=== PATIENT | male | born 2005 | race Hispanic/Latino ===

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

== ENCOUNTER → 2023-03-22 | Emergency (ER) | payer OTHER, SELFPAY ==
[~2023-03-22] MED LIST: AZITHROMYCIN 1 GM PACKET ONE; CEFTRIAXONE 1000 MG/VIAL ONE; NA CHLORIDE 0.9% 1,000 ML ONE; ONDANSETRON 4 MG/2 ML VIAL ONE
--- OUTSIDE RECORDS SUMMARY | 2023-03-22 08:56 | XMS REPORT | Continuity of Care Document ---
Author Name Unknown Address [address] [facility] [address] [place] [address] [facility] Address [address] [facility] [address] [place] [address] Care Team Providers Care Hotel Assistant Manager Name Role Phone PCP, PATIENT DOES NOT HAVE A Primary Care Physic yusuf Unavailable Abby Vargas PA-C Attending Clinician [phone] Saige Bergman Attending Clinician [phone] ABBY VARGAS Attending Clinician Unavailable Doctor Unassigned, [place] Attending Clinician U david Fairchild MD, Eliza Attending Clinician [phone] Diane Lawton Attending Clinician [phone] ELIZA FAIRCHILD Attending Clinician Unavailable Nurse, [facility] Attending Clinician Un available Maday Shafer Attending Clinician [phone] DixieFatou Mcallister Attending Clinician + [phone] MADAY ANDINO Attending Clinician Unavailable Provider, [facility] Attending Clinician Unavailable Only, Ang Db Test Attending Clinician UnavailDeepa Bejarano Attending Clinician [phone] DEEPA ACOSTA Attending Clinician Unavailmelvina Stoner RN, Sharmin Shelton Attending Clinician Unavailab le Payers Payer Name Policy Type Policy Number Effective Date Expirati on Date Source Problems Condition Name Condition Details Condition Category Status Onset Date Resolution Date Last Treatment Date Treating Clinician Comments Source No known active problems No known active problems Disease [facility] Allergies, Adverse Reactions, Alerts Allergy Name Allergy Type Status Severity Reaction(s) Onset Date Inactive Date Treating Clinician Comments Source NO KNOWN ALLERGIE S Drug Class Active [facility] Social History Social Habit Start Date Stop Date Quantity Comments Source Exposure to SARS-CoV-2 (event) Not sure [facility] Sex Assigned At 2005 00:00:00 2005 00:00:00 [facility] Smoking Status Start Date Stop Date Source Unknown if ever smoked [facility] Medications Ordered Medication Name Filled Medication Name Start Date Stop Date Current Medication? Ordering Clinician Indication Dosage Frequency Signature (SIG) Comments Components Source ondansetron (ZOFRAN-ODT ) disintegrat ing tablet 8 mg 05-24 02:30: 00 05-24 01:20 :00 No [id number] 8mg [facility] ondansetron (ZOFRAN-ODT ) disintegrat ing tablet 8 mg 05-24 02:30: 00 05-24 01:20 :00 No [id number] 8mg 8 mg, Oral, ONCE, 1 dose, On 05/23/21 at 2130, Routine [facility] ondansetron 4 mg disintegrat ing tablet 05-23 00:00: 00 Yes [id number] 4mg Take 1 tablet by mouth every 8 (eight) hours as needed for Nausea and Vomiting (N/V). [facility] Dextrometho rphan-Guaif enesin 5-100 mg/5 mL Liqd 2020-02 00:00: 00 Yes [id number] 5mL Take 5 mL by mouth every 6 (six) hours as needed for Cough. [facility] azelastine 137 mcg (0.1 %) nasal spray 2020-02 00:00: 00 Yes [id number] 1{spray } Use 1 [place] in each nostril 2 (two) times daily. Use in each nostril as directed [facility] codeine-gua ifenesin 10-100 mg/5 mL oral solution 2020-02 00:00: 00 Yes 5mL Take 5 mL by mouth every 6 (six) hours as needed for Cough. Indication s: cough [facility] Dextrometho rphan-Guaif enesin 5-100 mg/5 mL Liqd 2020-02 00:00: 00 Yes [id number] 5mL Take 5 mL by mouth every 6 (six) hours as needed for Cough. [facility] azelastine 137 mcg (0.1 %) nasal spray 2020-02 00:00: 00 Yes [id number] 1{spray } Use 1 [place] in each nostril 2 (two) times daily. Use in each nostril as directed [facility] codeine-gua ifenesin 10-100 mg/5 mL oral solution 2020-02 00:00: 00 Yes 5mL Take 5 mL by mouth every 6 (six) hours as needed for Cough. Indication s: cough [facility] Dextrometho rphan-Guaif enesin 5-100 mg/5 mL Liqd 2020-02 00:00: 00 Yes [id number] 5mL Take 5 mL by mouth every 6 (six) hours as needed for Cough. [facility] azelastine 137 mcg (0.1 %) nasal spray 2020-02 00:00: 00 Yes [id number] 1{spray } Use 1 [place] in each nostril 2 (two) times daily. Use in each nostril as directed [facility] codeine-gua ifenesin 10-100 mg/5 mL oral solution 2020-02 00:00: 00 Yes 5mL Take 5 mL by mouth every 6 (six) hours as needed for Cough. Indication s: cough [facility] Dextrometho rphan-Guaif enesin 5-100 mg/5 mL Liqd 2020-02 00:00: 00 Yes [id number] 5mL Take 5 mL by mouth every 6 (six) hours as needed for Cough. [facility] azelastine 137 mcg (0.1 %) nasal spray 2020-02 00:00: 00 Yes [id number] 1{spray } Use 1 [place] in each nostril 2 (two) times daily. Use in each nostril as directed [facility] codeine-gua ifenesin 10-100 mg/5 mL oral solution 2020-02 00:00: 00 Yes 5mL Take 5 mL by mouth every 6 (six) hours as needed for Cough. Indication s: cough [facility] No known medications 2020-02 10:42: 52 No [facility] benzonatate (TESSALON PERLES) 100 mg capsule 2020-02 00:00: 00 01-17 05:59 :00 No [id number] 200mg Take 2 capsules by mouth every 8 (eight) hours for 10 days. [facility] cetirizine- psuedoephed rine (ZYRTEC-D) 5-120 mg per tablet 2020-02 00:00: 00 01-17 05:59 :00 No [id number] 1{tbl} Take 1 tablet by mouth 2 (two) times daily for 10 days. [facility] benzonatate (TESSALON PERLES) 100 mg capsule 2020-02 00:00: 00 01-17 05:59 :00 No [id number] 200mg Take 2 capsules by mouth every 8 (eight) hours for 10 days. [facility] cetirizine- psuedoephed rine (ZYRTEC-D) 5-120 mg per tablet 2020-02 00:00: 00 01-17 05:59 :00 No [id number] 1{tbl} Take 1 tablet by mouth 2 (two) times daily for 10 days. [facility] benzonatate (TESSALON PERLES) 100 mg capsule 2020-02 00:00: 00 01-17 05:59 :00 No [id number] 200mg Take 2 capsules by mouth every 8 (eight) hours for 10 days. [facility] cetirizine- psuedoephed rine (ZYRTEC-D) 5-120 mg per tablet 2020-02 00:00: 00 01-17 05:59 :00 No [id number] 1{tbl} Take 1 tablet by mouth 2 (two) times daily for 10 days. [facility] benzonatate (TESSALON PERLES) 100 mg capsule 2020-02 00:00: 00 01-17 05:59 :00 No [id number] 200mg Take 2 capsules by mouth every 8 (eight) hours for 10 days. [facility] cetirizine- psuedoephed rine (ZYRTEC-D) 5-120 mg per tablet 2020-02 00:00: 00 01-17 05:59 :00 No [id number] 1{tbl} Take 1 tablet by mouth 2 (two) times daily for 10 days. [facility] predniSONE 20 mg tablet 2020-02 00:00: 00 01-12 05:59 :00 No [id number] 40mg Take 2 tablets by mouth daily for 5 days. [facility] predniSONE 20 mg tablet 2020-02 00:00: 00 01-12 05:59 :00 No [id number] 40mg Take 2 tablets by mouth daily for 5 days. [facility] predniSONE 20 mg tablet 2020-02 00:00: 00 01-12 05:59 :00 No [id number] 40mg Take 2 tablets by mouth daily for 5 days. [facility] predniSONE 20 mg tablet 2020-02 00:00: 00 01-12 05:59 :00 No [id number] 40mg Take 2 tablets by mouth daily for 5 days. [facility] Vital Signs Vital Name Observation Time Observation Value Comments S chicomarya Systolic blood pressure 2021-05-24 00:50:00 115 mm[Hg] [facility] Diastolic blood pressure 2021-05-24 00:50:00 76 mm[Hg] [place] [facility] Heart rate 2021-05-24 00:50:00 82 /min [facility] 2021-05-24 00:50:00 36.39 Annalisa [facility] Respiratory rate 2021-05-24 00:50:00 14 /min [facility] Body height 2021-05-24 00:50:00 167.6 cm [facility] Body weight 2021-05-24 00:50:00 59.421 kg [facility] BMI 2021-05-24 00:50:00 21.14 kg/m2 [facility] Body mass index (BMI) [Percentile] Per age and sex 2021-05-24 00:50:00 42.94 % [facility] Oxygen saturation in Arterial blood by Pulse oximetry 2021-05-24 00:50:00 100 /min [facility] Body temperature 2021-01-11 17:05:00 37.11 Annalisa [facility] Respiratory rate 2021-01-11 17:05:00 18 /min [facility] Body weight 2021-01-11 17:05:00 69.899 kg [facility] Oxygen saturation in Arterial blood by Pulse oximetry 2021-01-11 17:05:00 95 /min [facility] Systolic blood pressure 2021-01-11 17:05:00 112 mm[Hg] [facility] Diastolic blood pressure 2021-01-11 17:05:00 69 mm[Hg] [facility] Heart rate 2021-01-11 17:05:00 80 /min [facility] Systolic blood pressure 2021-01-06 16:04:00 114 mm[Hg] [facility] Diastolic blood pressure 2021-01-06 16:04:00 78 mm[Hg] [facility] Heart rate 2021-01-06 16:04:00 90 /min [facility] Body temperature 2021-01-06 16:04:00 36.72 Annalisa [facility] Respiratory rate 2021-01-06 16:04:00 18 /min [facility] Body weight 2021-01-06 16:04:00 68.04 kg [facility] Oxygen saturation in Arterial blood by Pulse oximetry 2021-01-06 16:04:00 98 /min [facility] Procedures Procedure Date / Time Performed Performing Clinician Source POCT MOLECULAR FLU 2021-05-24 00:58:00 Saige Campos [facility] NO SHOW OR MISSED APPOINTMENT POLICY ACKNOWLEDGEMENT 2021-05-24 00:44:44 Doctor Unassigned, [place] [facility] XR CHEST 2 VW 2021-01-06 17:04:09 Maday Andino [facility] Encounters Start Date/Time End Date/Time Encounter Type Admission Type Attending [facility] Care Facility Care Department Encounter ID Source 2021-05-23 20:00:00 2021-05-23 20:20:00 Urgent Care Abby Vargas Cathy [facility] 1..840.114 350.1.13.10 4.2.7.2.686 [id number] [facility] 2021-05-23 20:00:00 2021-05-23 20:00:00 Outpatient ABBY NGUYEN [facility] [id number] [facility] 2021-05-23 00:00:00 2021-05-23 00:00:00 Orders Only Doctor Unassigned, [place] [facility] 1..840.114 350.1.13.10 4.2.7.2.686 [id number] [facility] 2021-01-11 10:56:21 2021-01-11 11:16:21 Urgent Care Eliza Fairchild Omayemi [facility] 1..840.114 350.1.13.10 4.2.7.2.686 [id number] [facility] 2021-01-11 11:00:00 2021-01-11 11:00:00 Outpatient ELIZA ISRAEL [facility] [id number] [facility] 2021-01-11 00:00:00 2021-01-11 00:00:00 Telephone Nurse, [facility] 1..840.114 350.1.13.10 4.2.7.2.686 [id number] [facility] 2021-01-06 10:36:44 2021-01-06 23:59:00 Hospital Encounter Maday Andino [facility] [facility] MED[facility] OFF[facility] 1.284.114 350.1.13.10 4.2.7.2.686 [id number] [facility] 2021-01-06 10:00:07 2021-01-06 10:43:37 Urgent Care Maday Andino Kimberly J [facility] 1.84.114 350.1.13.10 4.2.7.2.686 [id number] [facility] 2021-01-06 10:00:00 2021-01-06 10:43:37 Outpatient R MADAY ANDINO [facility] [id number] [facility] 2021-01-06 00:00:00 2021-01-06 00:00:00 Letter (Out) Provider, [facility] 1.84.114 350.1.13.10 4.2.7.2.686 [id number] [facility] 2020-11-14 17:11:25 2020-11-14 17:26:25 Laboratory Only Only, Ang Db Test [facility] 1.84.114 350.1.13.10 4.2.7.2.686 [id number] [facility] 2020-11-14 17:15:00 2020-11-14 17:15:00 Outpatient R DAVE [facility] [id number] [facility] 2020-11-13 13:51:42 2020-11-13 14:06:42 Laboratory Only Only, Ang Db Test Deepa Acosta [facility] Medical Office Building [id number] 350.1.13.10 4.2.7.2.686 [id number] [facility] 2020-11-13 13:45:00 2020-11-13 13:45:00 Outpatient R DEEPA ACOSTA [facility] [id number] [facility] 2020-11-13 00:00:00 2020-11-13 00:00:00 Letter (Out) Doctor Unassigned, [place] [facility] [id number] 350.1.13.10 4.2.7.2.686 [id number] [facility] 2020-10-30 00:00:00 2020-10-30 00:00:00 Letter (Out) Sharmin Stoner [facility] [id number] 350.1.13.10 4.2.7.2.686 [id number] [facility] 2020-10-28 13:00:53 2020-10-28 13:10:53 Laboratory Only Only, Ang Db Test Gurinder [facility] [id number] 350.1.13.10 [id number] [id number] [facility] 2020-10-28 13:00:00 2020-10-28 13:00:00 Outpatient R [facility] [id number] [facility] Results Test Description Test Time Test Comments Results Result Co mments Source [facility]
[2023-03-22 10:06] LABS: Absolute Lymphocytes (CBC) 1.1 K/uL (0.7-4.9); Hematocrit 37.8 % (39.6-49.0); Lymphocytes % 13.8 % (15.3-44.8); MPV 8.4 fL (7.6-11.3); Platelets 278 thou/uL (152-406); RBC Red Blood Cell Count 4.29 M/uL (4.33-5.43)
[2023-03-22 10:12] LABS: Specific Gravity 1.023 (1.005-1.030); Urine Bacteria None Seen /HPF (<20); Urine Bilirubin NEGATIVE (Negative); Urine Blood Trace (Negative); Urine Clarity Extremely Turbid (Clear); Urine Color Yellow (Yellow); Urine Glucose NEGATIVE (Negative); Urine Mucus 1+ /HPF (None Seen); Urine Protein 1+ (Negative); Urine RBC <5 /HPF (None Seen); Urine Urobilinogen 1+ (Normal)
[2023-03-22 10:24] LABS: Albumin 3.6 g/dL (3.4-5.0); Bilirubin Total 0.5 mg/dL (0.2-1.0); Potassium 3.8 mEq/L (3.5-5.1); Protein, Total 8.4 g/dL (6.4-8.2)
--- NOTE | 2023-03-22 11:43 | ER ---
[facility] Name: Sony Stone [facility] Age: 17 yrs Sex: Male : 2005 Arrival Date: 03/22/2023 Time: 08:53 Bed 15 Private MD: Diagnosis: Vomiting;Dysuria;UTI/ Urinary tract infection, site not specified Presentation: 03/22 09:12 Chief complaint: Patient states: N/V, chills/sweats since Monday. No known fevers. ll1 Coronavirus screen: Client denies travel out of the [place] in the last 14 days. At this time, the client does not indicate any symptoms associated with coronavirus-19. Ebola Screen: Patient denies travel to an Ebola-affected area in the 21 days before illness onset. Initial Sepsis Screen: Does the patient meet any 2 criteria? No. Patient's initial sepsis screen is negative. Does the patient have a suspected source of infection? Yes: Acute abdominal pain. Risk Assessment: Do you want to hurt yourself or someone else? Patient reports no desire to harm self or others. Onset of symptoms was March 20, 2023. 09:12 Method Of Arrival: Ambulatory ll1 09:12 Acuity: SYLWIA 3 ll1 Triage Assessment: 09:12 General: Appears uncomfortable, Behavior is calm, cooperative, appropriate for age. ll1 Pain: Complains of pain in abdomen Quality of pain is described as aching. GI: Reports lower abdominal pain, upper abdominal pain, cramping, nausea, vomiting. Historical: - Allergies: 09:12 NKDA; ll1 - PMHx: 09:12 None; ll1 - PSHx: 09:12 None; ll1 - Immunization history:: Adult Immunizations up to date. - Social history:: Smoking status: Patient denies any tobacco usage or history of. Screenin:[address] [facility] ED Fall Risk Assessment (Adult) History of falling in the last 3 months, mb9 including since admission No falls in past 3 months (0 pts) Confusion or Disorientation No (0 pts) Intoxicated or Sedated No (0 pts) Impaired Gait No (0 pts) Mobility Assist Device Used No (0 pt) Altered Elimination No (0 pt) Score/Fall Risk Level 0 - 2 = Low Risk Oriented to surroundings, Maintained a safe environment, Educated pt \T\ family on fall prevention, incl call for assistance when getting out of bed. Abuse screen: Denies threats or abuse. Nutritional screening: No deficits noted. Tuberculosis screening: No symptoms or risk factors identified. Assessment: 09:54 General: Appears in no apparent distress. Behavior is calm, cooperative. Pain: Denies mb9 pain. Neuro: Owusu Agitation-Sedation Scale (RASS): 0 - Alert and Calm Level of Consciousness is awake, alert, obeys commands, Oriented to person, place, time, situation, Appropriate for age. Cardiovascular: Patient's skin is warm and dry. Respiratory: Airway is patent Respiratory effort is even, unlabored, Respiratory pattern is regular, symmetrical. GI: Abdomen is flat, non-distended, Bowel sounds present X 4 quads. Abd is soft and non tender X 4 quads. GI: Reports nausea, vomiting. : No signs and/or symptoms were reported regarding the genitourinary system. EENT: No signs and/or symptoms were reported regarding the EENT system. Derm: Skin is pink, warm \T\ dry. Musculoskeletal: Range of motion: intact in all extremities. 10:56 Reassessment: No changes from previously documented assessment. Patient and/or family mb9 updated on plan of care and expected duration. Pain level reassessed. Patient is alert, oriented x 3, equal unlabored respirations, skin warm/dry/pink. 11:52 Reassessment: No changes from previously documented assessment. Patient and/or family mb9 updated on plan of care and expected duration. Pain level reassessed. Patient is alert, oriented x 3, equal unlabored respirations, skin warm/dry/pink. Vital Signs: 09:12 BP 113 / 69; Pulse 90; Resp 17; Temp 98.1; Pulse Ox 99% ; Weight 54.43 kg; Height 5 ft. ll1 8 in. ; Pain 7/10; 11:52 BP 114 / 84; Pulse 74; Resp 18; Pulse Ox 100% on R/A; mb9 09:12 Body Mass Index 18.25 (54.43 kg, 172.72 cm) - Percentile 2.1 % ll1 09:12 Pain Scale: Adult ll1 ED Course: 08:56 Patient arrived in ED. mg5 09:00 Sukhwinder Staley MD is Attending Physician. don 09:14 Triage completed. ll1 09:15 Arm band placed on. ll1 09:24 Patient placed in an exam room, on a stretcher. ll1 09:27 Bel Fofana, RN is Primary Nurse. mb9 09:42 Placed in gown. Bed in low position. Call light in reach. Side rails up X 1. Client mb9 placed on continuous cardiac and pulse oximetry monitoring. NIBP monitoring applied. 09:43 No provider procedures requiring assistance completed. mb9 09:53 Inserted saline lock: 18 gauge in right antecubital area, using aseptic technique. mb9 Blood collected. 11:52 IV discontinued, intact, bleeding controlled, No redness/swelling at site. Pressure mb9 dressing applied. Administered Medications: 09:45 Drug: NS 0.9% IV 1000 ml IV at 1 bolus Per protocol; 1000 mL bolus Route: IV; Rate: 1 mb9 bolus; Site: right antecubital; 11:53 Follow up: Response: No adverse reaction; IV Status: Completed infusion mb9 09:50 Drug: Ondansetron IVP 4 mg IVP once; over 2 minutes Route: IVP; Site: right antecubital;mb9 11:53 Follow up: Response: No adverse reaction mb9 11:41 Drug: Rocephin IV 1 grams IV at per protocol once; Given slow IV push per pharmacy mb9 instructions Route: IV; Rate: per protocol; Site: right antecubital; 11:52 Follow up: Response: No adverse reaction; IV Status: Completed infusion mb9 11:42 Drug: AZITHromycin PO 1 grams PO once Route: PO; mb9 11:53 Follow up: Response: No adverse reaction mb9 Medication: 09:43 VIS not applicable for this client. mb9 Outcome: :43 Discharge ordered by MD. ochoa 11:53 Patient left the ED. mb9 Signatures: Sukhwinder Staley MD MD cha Lewis, Lynsay, RN RN ll1 Bel Fofana, RN RN mb9 Rosi Engel mg5
--- NOTE | 2023-03-22 11:43 | EDPHYS ---
Physician Documentation [facility] Name: Sony Stone III Age: 17 yrs Sex: Male : 2005 Arrival Date: 03/22/2023 Time: 08:53 Bed 15 Private MD: ED Physician Sukhwinder Staley HPI: 03/22 11:37 This 17 yrs old Male presents to ER via Ambulatory with complaints of don Vomiting, Sweating. 11:37 The patient presents to the emergency department with nausea, vomiting, that is don continuous. Onset: The symptoms/episode began/occurred 2 day(s) ago. Possible causes: unknown. The symptoms are aggravated by nothing. The symptoms are alleviated by nothing. Severity of symptoms: At their worst the symptoms were mild in the emergency department the symptoms are unchanged. The patient has not experienced similar symptoms in the past. Historical: - Allergies: 09:12 NKDA; ll1 - PMHx: 09:12 None; ll1 - PSHx: 09:12 None; ll1 - Immunization history:: Adult Immunizations up to date. - Social history:: Smoking status: Patient denies any tobacco usage or history of. ROS: 11:38 Constitutional: Negative for fever, chills, and weight loss, Eyes: Negative for injury, don pain, redness, and discharge, ENT: Negative for injury, pain, and discharge, Neck: Negative for injury, pain, and swelling, Cardiovascular: Negative for chest pain, palpitations, and edema, Respiratory: Negative for shortness of breath, cough, wheezing, and pleuritic chest pain, Abdomen/GI: Negative for abdominal pain, nausea, vomiting, diarrhea, and constipation, Back: Negative for injury and pain, MS/Extremity: Negative for injury and deformity, Skin: Negative for injury, rash, and discoloration, Neuro: Negative for headache, weakness, numbness, tingling, and seizure, Psych: Negative for depression, anxiety, suicide ideation, homicidal ideation, and hallucinations, Allergy/Immunology: Negative for hives, rash, and allergies, Endocrine: Negative for neck swelling, polydipsia, polyuria, polyphagia, and marked weight changes, 11:38 : Positive for burning with urination, difficulty urinating, Exam: 11:38 Constitutional: This is a well developed, well nourished patient who is awake, alert, don and in no acute distress. Head/Face: Normocephalic, atraumatic. Eyes: Pupils equal round and reactive to light, extra-ocular motions intact. Lids and lashes normal. Conjunctiva and sclera are non-icteric and not injected. Cornea within normal limits. Periorbital areas with no swelling, redness, or edema. ENT: Nares patent. No nasal discharge, no septal abnormalities noted. Tympanic membranes are normal and external auditory canals are clear. Oropharynx with no redness, swelling, or masses, exudates, or evidence of obstruction, uvula midline. Mucous membranes moist. Neck: Trachea midline, no thyromegaly or masses palpated, and no cervical lymphadenopathy. Supple, full range of motion without nuchal rigidity, or vertebral point tenderness. No Meningismus. Chest/axilla: Normal chest wall appearance and motion. Nontender with no deformity. No lesions are appreciated. Cardiovascular: Regular rate and rhythm with a normal S1 and S2. No gallops, murmurs, or rubs. Normal PMI, no JVD. No pulse deficits. Respiratory: Lungs have equal breath sounds bilaterally, clear to auscultation and percussion. No rales, rhonchi or wheezes noted. No increased work of breathing, no retractions or nasal flaring. Abdomen/GI: Soft, non-tender, with normal bowel sounds. No distension or tympany. No guarding or rebound. No evidence of tenderness throughout. Skin: Warm, dry with normal turgor. Normal color with no rashes, no lesions, and no evidence of cellulitis. MS/ Extremity: Pulses equal, no cyanosis. Neurovascular intact. Full, normal range of motion. Neuro: Awake and alert, GCS 15, oriented to person, place, time, and situation. Cranial nerves II-XII grossly intact. Motor strength 5/5 in all extremities. Sensory grossly intact. Cerebellar exam normal. Normal gait. Psych: Awake, alert, with orientation to person, place and time. Behavior, mood, and affect are within normal limits. 11:38 : CVA tenderness, is absent, Male external genitalia: normal, Sexual behavior: the patient is sexually active, and reports a single partner, Vital Signs: 09:12 BP 113 / 69; Pulse 90; Resp 17; Temp 98.1; Pulse Ox 99% ; Weight 54.43 kg; Height 5 ft. ll1 8 in. ; Pain 7/10; 11:52 BP 114 / 84; Pulse 74; Resp 18; Pulse Ox 100% on R/A; mb9 09:12 Body Mass Index 18.25 (54.43 kg, 172.72 cm) - Percentile 2.1 % ll1 09:12 Pain Scale: Adult ll1 MDM: 09:00 Patient medically screened. [facility] 11:41 Differential diagnosis: Nonspecific abd pain, gastritis, pancreatitis, viral don gastroenteritis, gastroenteritis, nonspecific abdominal pain, UTI, urethritis. Data reviewed: vital signs, nurses notes, lab test result(s), urinalysis, bacteruria. Consideration of Admission/Observation Escalation of care including admission/observation considered. I considered the following discharge prescriptions or medication management in the emergency department Medications were administered in the Emergency Department. See MAR. Test considered but Not performed: CT: NO CT STONE. Historians other than the Patient: PT WELL INFORMED. Care significantly affected by the following chronic conditions: NONE. Counseling: I had a detailed discussion with the patient and/or guardian regarding the historical points, exam findings, and any diagnostic results supporting the discharge/admit diagnosis, lab results, the need for outpatient follow up, for definitive care, a family practitioner. 03/22 09:01 Order name: CBC with Diff; Complete Time: : [facility] 03/22 09:01 Order name: Comprehensive Metabolic Panel; Complete Time: : [facility] 03/22 09:01 Order name: Urinalysis W/Microscopic; Complete Time: : [facility] 03/22 09:01 Order name: Lipase; Complete Time: [facility] 03/22 10:14 Order name: Urine Culture EDMS Administered Medications: 09:45 Drug: NS 0.9% IV 1000 ml IV at 1 bolus Per protocol; 1000 mL bolus Route: IV; Rate: 1 mb9 bolus; Site: right antecubital; 11:53 Follow up: Response: No adverse reaction; IV Status: Completed infusion 9 09:50 Drug: Ondansetron IVP 4 mg IVP once; over 2 minutes Route: IVP; Site: right antecubital;mb9 11:53 Follow up: Response: No adverse reaction [facility] 11:41 Drug: Rocephin IV 1 grams IV at per protocol once; Given slow IV push per pharmacy mb9 instructions Route: IV; Rate: per protocol; Site: right antecubital; 11:52 Follow up: Response: No adverse reaction; IV Status: Completed infusion mb9 11:42 Drug: AZITHromycin PO 1 grams PO once Route: PO; mb9 11:53 Follow up: Response: No adverse reaction mb9 Disposition Summary: 03/22/23 11:43 Discharge Ordered Notes: Location: Home don Problem: new don Symptoms: have improved don Condition: Stable don Diagnosis - Vomiting don - Dysuria don - UTI/ Urinary tract infection, site not specified don Followup: don - With: Private Physician - When: 2 - 3 days - Reason: Recheck today's complaints, Continuance of care, Re-evaluation by your physician Discharge Instructions: - Dysuria don - Urinary Tract Infection, Adult don - Nausea and Vomiting, Adult, [id number] don - Urinary Tract Infection, Adult, [id number] don - Vomiting, Adult don - Discharge Summary Sheet ll1 Forms: - Medication Reconciliation Form [facility] - Thank You Letter [facility] - Antibiotic Education [facility] - Prescription Opioid Use [facility] - Patient Portal Instructions [facility] - Leadership Thank You Letter [facility] - Work release form ll1 Prescriptions: - ondansetron 4 mg Oral Tablet,disintegrating - take 1 tablet ORAL route every 6-8 hours; 20 tablet; Refills: 0, Product [facility] Selection Permitted - Cipro 250 mg Oral Tablet - take 2 tablets ORAL route every 12 hours; 20 tablet; Refills: 0, Product [facility] Selection Permitted Signatures: Dispatcher [employer] Sukhwinder Clark MD MD cha Lewis, Lynsay, RN RN ll1 Bel Fofana RN RN mb9 Corrections: (The following items were deleted from the chart) 11:22 09:02 Test, Urine+UC.LAB.BRZ ordered. ED EDMS
[2023-03-22 12:21] VITALS: BP 114/84; TEMP 98.1; O2SAT 100
== END ==
LOC: ER 08:53
DX: N39.0 Urinary tract infection, site not specified (principal); R30.0 Dysuria
CPT/HCPCS: 36415; 80053; 81001; 83690; 85025; 87086; 87088; 96361; 96374; 96375; 99284; J0696; J2405; J7030

== ENCOUNTER 2023-10-23 22:38 | Emergency (ER) | payer OTHER, SELFPAY ==
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
[2023-10-24 01:40] VITALS: TEMP 97.9
[2023-10-24 01:42] VITALS: BP 98/59; O2SAT 100
--- NOTE | 2023-10-25 11:22 | RAD REPORT ---
EXAM DESCRIPTION: CT - Head C Spine Cap Wo Con - 10/24/2023 6:52 am CLINICAL HISTORY: Pain;Trauma COMPARISON: 11/15/2020. TECHNIQUE: CT HEAD CERVICAL SPINE CHEST ABDOMEN PELVIS WITHOUT IV CONTRAST on 10/23/2023 11:08 PM CDT This exam was performed according to our departmental dose-optimization program, which includes autom ated exposure control, adjustment of the mA and/or kV according to patient size and/or use of iterati ve reconstruction technique. FINDINGS: Brain: There is no acute hemorrhage, mass effect or midline shift. Landrum-white differentiat ion is preserved. There is no hydrocephalus. There is no significant volume loss for age. The calvarium is intact. Orbits and globes are unremarkable. There is minimal thickening of both maxi llary sinuses. Mastoid air cells are clear. Cervical Spine: There is no acute fracture. Alignment is anatomic. Disc spaces are maintained. Vertebral body heights are preserved. Soft tissues are unremarkable. Chest: The heart is normal in size. There is no pericardial effusion. Intrathoracic lymph nodes are n ot enlarged. There is no pleural effusion, pleural thickening or pneumothorax. Central airways are patent. Lungs a re clear with no consolidation, mass or interstitial lung disease. Abdomen: The liver is normal in appearance. There is no biliary dilatation. Gallbladder is normal in appearance. The pancreas and spleen are normal in appearance. The adrenal glands and kidneys are unre markable. Abdominal aorta is normal in course and caliber without aneurysm. There is no free air. There is no r etroperitoneal adenopathy. Pelvis: There is no bowel obstruction. Urinary bladder is unremarkable. There is no free fluid. Appen andrew is normal. Skeleton: There are no acute osseous findings. No suspicious bony lesions. IMPRESSION: No definite acute posttraumatic findings. Electronically signed by: Jake Barajas MD 10/23/2023 11:59 PM CDT Due to temporary technical issues with the PACS/Fluency reporting system, reports are being signed by the in house radiologist without review as a courtesy to ensure prompt reporting. The interpreting r adiologist is fully responsible for the content of the report.
== END 2023-10-24 01:17 | disposition home or self-care (01) ==
LOC: ER 22:38
DX: R51.9 Headache, unspecified (principal); S09.90XA Unspecified injury of head, initial encounter; S00.83XA Contusion of other part of head, initial encounter; M54.9 Dorsalgia, unspecified; V49.50XA Passenger injured in collision with unspecified motor vehicles in traffic accident, initial encounter
CPT/HCPCS: 70450; 71250; 72125; 99283